=== PATIENT | female | born 1950 | race Caucasian/White ===

== ENCOUNTER → 2019-12-23 07:37 | Outpatient (CLI) | payer MEDICARE, OTHER ==
--- NOTE | ~2019-12-23 | EC ---
PATIENT:VICKI MARIE DATE OF SERVICE: 12/23/19 SEX: F MEDICAL RECORD: [id number] DATE OF : [birth year] LOCATION:[facility] AGE OF PATIENT: 69 ADMISSION DATE: 12/23/19 REFERRING PHYSICIAN: INTERPRETING PHYSICIAN: PRUDENCE NAVARRO MD ECHOCARDIOGRAM REPORT ECHO CHARGES 4 ECHO COMPLETE Date: 12/23/19 CLINICAL DIAGNOSIS: DYSPNEA, COPD ECHOCARDIOGRAPHIC MEASUREMENTS (adult normal given) AC root (d.<3.7cm) 2.4 cm LV Septum d (<1.2 cm> 1.3 cm Valve Excursion 1.2 cm LV Septum (systole) 1.6 cm Left Atria (s.<4.0cm> 4.0 cm LVPW d(<1.2cm) 1.3 cm RV (d.<2.3cm) 3.1 cm LVPW (sytole) 1.6 cm LV diastole(<5.6CM) 5.1 cm MV E-F(>70mm/sec) cm LV systole 3.8 cm LVOT Diameter 1.8 cm MV exc.(>10mm) cm Est.ejection fraction (50-75%) % DOPPLER: LVIT cm/sec A 105 cm/sec E 69 cm/sec LA cm/sec RVSP 19.5 mmHg LVOT 135 cm/sec AOP1/2T m/s Asc. Ao 157 cm/sec RVOT 54 cm/sec RA cm/sec PA 73 cm/sec AV Gradient Peak 9.8 mmHg AV Mean 5.1 mmHg AV Area 2.3 cm MV Gradient Peak 7.6 mmHg MV Mean 3.3 mmHg MV Area cm COMMENTS: [employer] House Supervisor: Juan [facility] Nursery Teacher: 1 Dr. Navarro TAPE# PACS Pericardial Effusion N DATE OF SERVICE: Echocardiogram FINDINGS: 1. Left ventricular chamber size is within normal limits. Left ventricular systolic function is normal. Overall ejection fraction estimated at 55%. 2. Left atrium, right atrium, and right ventricle chamber sizes are within normal limits. 3. Valvular structures have normal structure and motion. ECHOCARDIOGRAM REPORT [id number] VICKI MARIE 4. Doppler interrogation reveals trace mitral regurgitation, no other valvular insufficiency or stenosis. 5. No evidence of pericardial effusion or left ventricular thrombus. TRANSINT:[id number] Voice Confirmation ID: [id number] DOCUMENT ID: [id number] PRUDENCE NAVARRO MD CC: [id number] DICTATION DATE: 12/23/19 1520 [place] SPECIALIST: 12/23/19 2308 REG [facility] [address] [id number]
== END | disposition home or self-care (01) ==
LOC: D.RT 07:37 → D.ECHO 09:35 → D.RT 01-02 09:00
PROVIDERS: ATTEND Internal Medicine Pulmonary Disease
DX: J44.9 Chronic obstructive pulmonary disease, unspecified (principal); R06.00 Dyspnea, unspecified